=== PATIENT | female | born 1955 | race Caucasian/White ===

== ENCOUNTER 2019-06-04 14:46 | Emergency (ER) | payer OTHER, SELFPAY ==
[2019-06-04 14:52] VITALS: BP 89/52; PULSE 75; RESP 15; O2SAT 96; BMI 35.4
--- NOTE | 2019-06-04 14:52 | ED_ITS ---
Entered by Khio Gilliam LPN, acting as scribe for Denis Lester DO HPI - Syncope General: Chief Complaint: Syncope Stated Complaint: SYNCOPAL EPISODE Time Seen by Provider: 06/04/19 14:52 Source: patient Limitations: no limitations History of Present Illness: HPI narrative: 64 yo female presents after syncopal episode today. She reports she was standing up and suddenly felt lightheaded, like she was going to faint. She states she got hot and sob. Family at bedside reports she did pass out and vomited on herself. She denies any recent illness, diarrhea, urinary symptoms. She denies chest pain. She did have increased sugar this am, about 312, on DM PO meds. She denies any recent med changes or new medication. Associated symptoms: Reports nausea; Deny chest pain Review of Systems General: Reports: 10 or more systems reviewed and unremarkable except in HPI and below Card: Reports: syncope; Denies: chest pain, palpitations or irregular heart rhythm Resp: Reports: shortness of breath GI: Reports: nausea and vomiting; Denies: diarrhea PFSH ED PFSH: Social History Smoking and tobacco status: never smoked Physical Exam Const: COMMON NORMALS: no apparent distress, average body habitus, oriented x3, no limitations, healthy appearing, alert and well nourished HENMT: COMMON NORMALS: normocephalic, head/scalp atraumatic, hearing grossly normal bilaterally, external ears normal, EAC's normal, TM's normal bilaterally, external nose normal, nasal mucous membranes and turbinates normal, moist oral mucous membranes, oropharynx normal, dentition normal and gingiva normal HEAD & SCALP: normocephalic and atraumatic NOSE: external nose normal and nasal mucous membranes and turbinates normal EXTERNAL EAR: Yes external ears normal EXTERNAL AUDITORY CANAL: EAC's normal TYMPANIC MEMBRANE: TM's normal bilaterally Eye: COMMON NORMALS: PERRL, EOMs intact bilaterally, conjunctivae normal, no scleral icterus, no papilledema, normal visual musa by confrontation and fundi normal bilaterally CONJUNCTIVA: Yes conjunctivae normal PUPIL: Yes PERRL DIRECT OPHTHALMOSCOPY: Yes no papilledema and Yes fundi normal bilaterally Neck/C-Spine: COMMON NORMALS: full ROM, no lymphadenopathy, supple, no meningeal signs, no JVD, thyroid normal and no carotid bruits THYROID: thyroid normal Chest: COMMONS NORMALS: inspection of chest normal and palpation of chest normal Resp: COMMON NORMALS: normal respiratory effort, no retractions, no use of accessory muscles, clear to auscultation bilaterally and percussion normal AUSCULTATION: clear to auscultation bilaterally PERCUSSION: percussion normal Cardio: COMMON NORMALS: no JVD, regular rate, regular rhythm, S1 normal heart sound, S2 normal heart sound, no gallops, no clicks, no murmurs, no rub and peripheral pulses 2+ throughout RATE: regular rate RHYTHM: regular rhythm HEART SOUNDS: S1 normal and S2 normal PERIPHERAL PULSES: pulses 2+ throughout GI: COMMON NORMALS: normal to inspection, nondistended, normoactive bowel sounds, soft to palpation, non-tender, no hepatosplenomegaly, no masses and no bruits PALPATION: Yes soft and Yes no hepatosplenomegaly : COMMON NORMALS: Yes no CVA tenderness and Yes external appearance normal BLADDER/KIDNEY EXAM: Yes no CVA tenderness Back/Pelvis: COMMON NORMALS: no CVA tenderness, thoracic and lumbar spine normal to inspection, no thoracic nor lumbar tenderness, thoraco-lumbar ROM normal and straight leg raise negative bilaterally Extremity: COMMON NORMALS: normal to inspection, full ROM, normal capillary refill, no joint enlargement, no clubbing, cyanosis or edema, no calf tenderness and no pedal edema Neuro: COMMON NORMALS: oriented x3 SENSORIUM/ORIENTATION: Yes alert MENINGEAL SIGNS: Yes no meningeal signs Skin: COMMON NORMALS: no rashes or lesions noted, no wounds, skin turgor normal, no jaundice, no petechiae and no mottling GENERAL SKIN EXAM: no rashes or lesions noted and turgor normal Course Vital Signs: Vital signs: Vital Signs Pulse Rate 73 06/04/19 16:28 Respiratory Rate 16 06/04/19 16:28 Blood Pressure 110/57 06/04/19 16:28 Pulse Oximetry 95 06/04/19 16:28 MDM - Syncope Lab Data: Attestation: I reviewed the patient's lab results. Labs: Lab Results 06/04/19 06/04/19 06/04/19 Range/Units 14:27 14:27 14:27 WBC 9.7 (4.0-10.0) 10^3/ uL RBC 5.36 H (4.1-5.3) 10^6/u L Hgb 15.7 H (11.5-15.3) g/dL Hct 46.6 (37.0-47.0) % MCV 86.9 (81-99) fL MCH 29.3 (28.0-34.0) pg MCHC 33.7 (30.0-36.0) g/dL RDW 12.0 L (12.1-15.1) % Plt Count 319 (130-400) 10^3/c mm MPV 11.7 H (7.4-10.4) fL Neut % (Auto) 36.2 % Lymph % (Auto) 52.8 % Coleman % (Auto) 9.2 % Eos % (Auto) 0.8 % Baso % (Auto) 0.7 % Neut # (Auto) 3.5 (1.8-7.7) 10^3/u L Lymph # (Auto) 5.1 H (0.8-4.8) 10^3/u L Coleman # (Auto) 0.9 (0.2-0.9) 10^3/u L Eos # (Auto) 0.1 (0.0-0.8) 10^3/u L Baso # (Auto) 0.1 (0.0-0.1) 10^3/u L Nucleated RBC % (a uto) 0 % Nucleated RBCs # 0.0 /100WBC Sodium 138 (136-145) mmol/L Potassium 3.7 (3.5-5.1) mmol/L Chloride 98 (98-107) mmol/L Carbon Dioxide 22 (22-29) mmol/L Anion Gap 21.7 H (5-19) BUN 28 H (8-23) mg/dL Creatinine 1.3 H (0.5-0.9) mg/dL GFR Calculation 41.1 L (90-130) mL/min Glucose 209 H (65-115) mg/dL Lactate (0.5-2.2) mmol/L Calcium 10.1 (8.5-10.5) mg/dL Total Bilirubin 0.4 (0.15-1.2) mg/dL AST 35 H (0-32) U/L ALT 66 H (0-33) U/L Alkaline Phosphata se 95 (35-105) IU/L Troponin T Baselin e 10 (0-10) ng/mL Troponin T 120 Min [place] (0-10) ng/mL Delta Troponin T (0-10) ABS# Total Protein 8.4 (6.6-8.7) g/dL Albumin 5.1 (3.5-5.2) g/dL Globulin 3.3 (1.3-4.6) g/dL Urine Color (Yellow) Urine Appearance (CLEAR) Urine pH (5-7) Ur Specific Gravit y (1.005-1.030) Urine Protein (Negative) Urine Glucose (UA) (Normal) Urine Ketones (Negative) Urine Blood (Negative) Urine Nitrate (Negative) Urine Bilirubin (NEGATIVE) Urine Urobilinogen (Negative) mg/dL Ur Leukocyte Kya ase (Negative) Urine RBC (0-2) /hpf Urine WBC (0-5) /hpf Ur Squamous Epith Cells (0-5) Urine Bacteria (NONE) 06/04/19 06/04/19 06/04/19 Range/Units 15:26 15:46 16:45 WBC (4.0-10.0) 10^3/ uL RBC (4.1-5.3) 10^6/u L Hgb (11.5-15.3) g/dL Hct (37.0-47.0) % MCV (81-99) fL MCH (28.0-34.0) pg MCHC (30.0-36.0) g/dL RDW (12.1-15.1) % Plt Count (130-400) 10^3/c mm MPV (7.4-10.4) fL Neut % (Auto) % Lymph % (Auto) % Coleman % (Auto) % Eos % (Auto) % Baso % (Auto) % Neut # (Auto) (1.8-7.7) 10^3/u L Lymph # (Auto) (0.8-4.8) 10^3/u L Coleman # (Auto) (0.2-0.9) 10^3/u L Eos # (Auto) (0.0-0.8) 10^3/u L Baso # (Auto) (0.0-0.1) 10^3/u L Nucleated RBC % (a uto) % Nucleated RBCs # /100WBC Sodium (136-145) mmol/L Potassium (3.5-5.1) mmol/L Chloride (98-107) mmol/L Carbon Dioxide (22-29) mmol/L Anion Gap (5-19) BUN (8-23) mg/dL Creatinine (0.5-0.9) mg/dL GFR Calculation (90-130) mL/min Glucose (65-115) mg/dL Lactate 2.0 (0.5-2.2) mmol/L Calcium (8.5-10.5) mg/dL Total Bilirubin (0.15-1.2) mg/dL AST (0-32) U/L ALT (0-33) U/L Alkaline Phosphata se (35-105) IU/L Troponin T Baselin e (0-10) ng/mL Troponin T 120 Min [place] 8.18 (0-10) ng/mL Delta Troponin T -1.82 L (0-10) ABS# Total Protein (6.6-8.7) g/dL Albumin (3.5-5.2) g/dL Globulin (1.3-4.6) g/dL Urine Color Yellow (Yellow) Urine Appearance Cloudy (CLEAR) Urine pH 5 (5-7) Ur Specific Gravit y 1.030 (1.005-1.030) Urine Protein 2+ H (Negative) Urine Glucose (UA) Norm (Normal) Urine Ketones 1+ H (Negative) Urine Blood Neg (Negative) Urine Nitrate Negative (Negative) Urine Bilirubin 1+ H (NEGATIVE) Urine Urobilinogen 1 H (Negative) mg/dL Ur Leukocyte Kya ase Negative (Negative) Urine RBC None (0-2) /hpf Urine WBC 0-4 H (0-5) /hpf Ur Squamous Epith Cells 10-15 H (0-5) Urine Bacteria 3+ H (NONE) Imaging Data^: CXR: Radiologist's impression: IMPRESSION: Negative chest for active pathology. Dictated By:Ryley Powell DO EKG Data^: EKG 1: Prior EKG tracings: not available for review Computer Generated Interpretation: Ordering Provider/Ordering MD: Denis Lester DO Date of Service: 06/04/19 Procedure(s): ECG 12 lead EKG Accession Number(s): [id number] Report Number: [id number] Measurements Intervals [place] Rate: 75 P: 39 [place]: 164 QRS: -21 QRSD: 122 T: 137 QT: 426 QTc: 477 SINUS RHYTHM LEFT BUNDLE BRANCH BLOCK [120+ ms QRS DURATION, 80+ ms Q/S IN V1/V2, 85+ ms R IN I/a I/a I/a I/aVL/V5/V6] INTERPRETATION BASED ON A DEFAULT AGE OF 40 YEARS No previous ECG available for comparison [id number] Dictated By:INTERFACE,USER Discharge Plan Discharge Patient Disposition: Home, Self-Care Clinical Impression: Syncope due to orthostatic hypotension Condition: Stable Prescriptions: No Action celecoxib 200 mg capsule 200 mg PO DAILY RF: 0 metformin 500 mg tablet 1,000 mg PO BID RF: 0 levothyroxine 175 mcg tablet 175 mcg PO QAM RF: 0 citalopram 40 mg tablet 40 mg PO DAILY RF: 0 atorvastatin 10 mg tablet 10 mg PO QPM RF: 0 glyburide 5 mg tablet 5 mg PO BID RF: 0 pantoprazole 40 mg tablet,delayed release (DR/EC) 40 mg PO DAILY RF: 0 Benadryl 25 mg Capsule 25 mg PO BEDTIME RF: 0 Aleve 220 mg Tablet 440 mg PO BEDTIME RF: 0 lisinopril 40 mg tablet 40 mg PO DAILY RF: 0 Flonase Allergy Relief 50 mcg/actuation [place],Suspension 1 spray INTRANASAL DAILY RF: 0 Discharge Orders: Discharge Order (Routine); Ordered 06/04/19 Ordered By: Denis Lester Coding Level of Care Code 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
--- NOTE | 2019-06-04 15:07 | XR_ITS ---
WS: [id number] XR chest 1V portable [id number] REASON FOR EXAM: syncope FINDINGS: Comparisons made to previous exam November 01, 2014. The lung musa are well aerated. No pneumonia, pleural effusion, pulmonary edema, or mass effect. The heart is of normal size. The hilum and apices normal. No osseous abnormalities. XR/XR chest 1V portable [id number] IMPRESSION: Negative chest for active pathology.
--- NOTE | 2019-06-04 15:07 | CTR_ITS ---
PROCEDURE INFORMATION: Exam: CT Head Without Contrast Exam date and time: 06/04/2019 3:20 PM Age: 64 years old Clinical indication: Dizziness; Additional info: Syncope TECHNIQUE: Imaging protocol: Computed tomography of the head without contrast. Total DLP: 745.71 mGy-cm Radiation optimization: All CT scans at this facility use at least one of these dose optimization techniques: automated exposure control; mA and/or kV adjustment per patient size (includes targeted exams where dose is matched to clinical indication); or iterative reconstruction. COMPARISON: No relevant prior studies available. FINDINGS: Brain: No visible evidence of active or acute intracranial pathologic process Ventricles: Unremarkable for age. No ventriculomegaly. Bones/joints: Unremarkable. No acute fracture. Sinuses: Small air-fluid level right sphenoethmoid recess of active sinusitis. Mastoid air cells: Visualized mastoid air cells are well aerated. Soft tissues: Unremarkable. CT/CT head wo con* [id number] IMPRESSION: 1. No visible active or acute intracranial pathologic process. 2. Right sphenoethmoid recess mild sinusitis. Radiation Dose CTDIVOL = (mGy): DLP = 745.71 (mGy-cm)
--- NOTE | 2019-06-04 15:12 | ECG_ITS ---
Measurements Intervals [place] Rate: 75 P: 39 [place]: 164 QRS: -21 QRSD: 122 T: 137 QT: 426 QTc: 477 SINUS RHYTHM LEFT BUNDLE BRANCH BLOCK No previous ECG available for comparison Electronically Signed On 06-04-2019 16:36:16 GAS PLANT OPERATOR by Yuliana Abdalla M.D. [id number] f
[2019-06-04 15:34] LABS: Basophils # 0.1 10^3/uL (0.0-0.1); Basophils % 0.7 %; Eosinophils # 0.1 10^3/uL (0.0-0.8); Eosinophils % 0.8 %; Hematocrit 46.6 % (37.0-47.0); Hemoglobin 15.7 g/dL (11.5-15.3); Lymphocytes # 5.1 10^3/uL (0.8-4.8); Lymphocytes % 52.8 %; Mean Corpuscular HGB Conc 33.7 g/dL (30.0-36.0); Mean Corpuscular Hemoglobin 29.3 pg (28.0-34.0); Mean Corpuscular Volume 86.9 fL (81-99); Mean Platelet Volume 11.7 fL (7.4-10.4); Monocytes # 0.9 10^3/uL (0.2-0.9); Monocytes % 9.2 %; Neutrophils # 3.5 10^3/uL (1.8-7.7); Neutrophils % 36.2 %; Nucleated Red Blood Cells % 0 %; Platelet Count 319 10^3/cmm (130-400); Red Blood Count 5.36 10^6/uL (4.1-5.3); White Blood Count 9.7 10^3/uL (4.0-10.0)
[2019-06-04 15:54] LABS: Alanine Aminotransferase 66 U/L (0-33); Albumin Level 5.1 g/dL (3.5-5.2); Alkaline Phosphatase 95 IU/L (35-105); Anion Gap 21.7 (5-19); Aspartate Amino Transferase 35 U/L (0-32); Blood Urea Nitrogen 28 mg/dL (8-23); Calcium 10.1 mg/dL (8.5-10.5); Carbon Dioxide 22 mmol/L (22-29); Chloride 98 mmol/L (98-107); Globulin 3.3 g/dL (1.3-4.6); Glomerular Filtration Rate 41.1 mL/min (90-130); Glucose 209 mg/dL (65-115); Potassium 3.7 mmol/L (3.5-5.1); Sodium 138 mmol/L (136-145); Total Bilirubin 0.4 mg/dL (0.15-1.2); Total Protein 8.4 g/dL (6.6-8.7)
[2019-06-04 15:56] LABS: Troponin(5th) Baseline 10 ng/mL (0-10)
[2019-06-04 16:20] LABS: Bilirubin Urine 1+ (NEGATIVE); Blood Urine Neg (Negative); Glucose Urine UA Norm (Normal); Ketones Urine 1+ (Negative); Nitrate Urine Negative (Negative); Protein Urine 2+ (Negative); Urine Appearance Cloudy (CLEAR); Urine Color Yellow (Yellow); Urobilinogen Urine 1 mg/dL (Negative); pH Urine 5 (5-7)
[2019-06-04 16:21] LABS: Add Urine Microscopic? YES; Bacteria Urine 3+; Leukocyte Esterase Urine Negative (Negative)
[2019-06-04 16:22] LABS: Add Urine Culture? No; WBC Urine 0-4 /hpf (0-5)
[2019-06-04 16:28] VITALS: BP 110/57; PULSE 73; RESP 16; O2SAT 95
[2019-06-04 17:10] LABS: Troponin 5 2HR 8.18 ng/mL (0-10)
--- NOTE | 2019-06-04 17:12 | ECG_ITS ---
Measurements Intervals [place] Rate: 64 P: 52 ND: 165 QRS: -23 QRSD: 119 T: 143 QT: 449 QTc: 465 SINUS RHYTHM Incomplete LBBB MODERATE T-WAVE ABNORMALITY, CONSIDER LATERAL ISCHEMIA Compared to ECG 06/04/2019 15:08:57 T-wave abnormality now present Possible ischemia now present Left bundle-branch block no longer present Electronically Signed On 06-04-2019 20:00:25 HEAT READER by Yuliana Abdalla M.D. [id number]
[2019-06-04 17:18] LABS: Troponin 5 2HR Delta -1.82 ABS# (0-10)
== END 2019-06-04 17:41 | disposition home or self-care (01) ==
PROVIDERS: Emergency Provider Family Medicine
DX: I95.1 Orthostatic hypotension (principal); E11.9 Type 2 diabetes mellitus without complications; Z79.84 Long term (current) use of oral hypoglycemic drugs
CPT/HCPCS: 36415; 70450; 71045; 80053; 81001; 83605; 84484; 85025; 87040; 93005; 96360; 99282; 99284

== ENCOUNTER → 2021-08-23 14:32 | Outpatient (BNVA) | payer MEDICARE, SELFPAY | PROVIDERS: Referring Provider Family Medicine; Visit Provider Otolaryngology | DX: R04.0 Epistaxis (principal) | CPT/HCPCS: 99203 ==

== ENCOUNTER → 2021-09-06 08:23 | Outpatient (BNVA) | payer MEDICARE, SELFPAY | PROVIDERS: PCP Family Medicine; Visit Provider Otolaryngology | DX: R04.0 Epistaxis (principal) | CPT/HCPCS: 99212 ==

== ENCOUNTER → 2022-07-12 08:19 | Outpatient (BNVA) | payer MEDICARE, SELFPAY | PROVIDERS: PCP Family Medicine; Visit Provider Podiatrist Foot & Ankle Surgery | DX: E11.42 Type 2 diabetes mellitus with diabetic polyneuropathy (principal); L60.3 Nail dystrophy; M21.621 Bunionette of right foot; M21.622 Bunionette of left foot; M20.42 Other hammer toe(s) (acquired), left foot; Z79.84 Long term (current) use of oral hypoglycemic drugs | CPT/HCPCS: 99204 ==

== ENCOUNTER 2022-08-15 10:47 | Outpatient (CLI) | payer MEDICARE, SELFPAY ==
[2022-08-15 11:50] LABS: Alanine Aminotransferase 34 U/L (0-33); Albumin Level 4.3 g/dL (3.5-5.2); Alkaline Phosphatase 101 U/L (35-105); Anion Gap 14.7 (5-19); Aspartate Amino Transferase 24 U/L (0-32); Blood Urea Nitrogen 16 mg/dL (8-23); Calcium 8.7 mg/dL (8.5-10.5); Carbon Dioxide 24 mmol/L (22-29); Chloride 103 mmol/L (98-107); Globulin 2.6 g/dL (1.3-4.6); Glomerular Filtration Rate 83.2 mL/min (90-130); Glucose 160 mg/dL (65-115); Osmolality Calculated 289 mOsm/kg (285-295); Potassium 4.7 mmol/L (3.5-5.1); Sodium 137 mmol/L (136-145); Total Bilirubin 0.3 mg/dL (0.15-1.2); Total Protein 6.9 g/dL (6.6-8.7)
== END 2022-08-15 10:48 | disposition home or self-care (01) ==
LOC: LAB 10:51
PROVIDERS: PCP Family Medicine; Visit Provider Podiatrist Foot & Ankle Surgery
DX: B35.1 Tinea unguium (principal)
CPT/HCPCS: 80053

== ENCOUNTER → 2023-03-29 15:09 | Outpatient (BNVA) | payer MEDICARE, SELFPAY | PROVIDERS: PCP Family Medicine; Visit Provider Nurse Practitioner | DX: R09.81 Nasal congestion (principal); J01.90 Acute sinusitis, unspecified; M62.830 Muscle spasm of back; U07.1 COVID-19 | CPT/HCPCS: 87426 ==

== ENCOUNTER 2023-07-14 20:21 | Emergency (ER) | payer MEDICARE, SELFPAY ==
[2023-07-14 20:25] VITALS: BP 149/78; PULSE 70; RESP 18; TEMP 36.9; O2SAT 95
--- NOTE | 2023-07-14 20:30 | XRR_ITS ---
PROCEDURE INFORMATION: Exam: XR Chest Exam date and time: 07/14/2023 8:50 PM Age: 68 years old Clinical indication: Cough and shortness of breath; Patient HX: Cough with SOB TECHNIQUE: Imaging protocol: Radiologic exam of the chest. Views: 1 view. COMPARISON: CR XR chest 1V portable [id number] 06/04/2019 3:43 PM FINDINGS: Lungs: Clear, symmetrically inflated lungs. Pleural spaces: No pleural effusion. No pneumothorax. Heart/Mediastinum: Cardiac silhouette is normal in size for technique. Bones/joints: Age appropriate. XR/XR chest 1V [id number] IMPRESSION: No acute cardiopulmonary abnormality.
--- NOTE | 2023-07-14 21:01 | W.ED.URI ---
HPI - URI/Sore Throat General: Chief Complaint: Upper Respiratory Infection Stated Complaint: Sinus, SOB Time Seen by Provider: 07/14/23 20:47 History of Present Illness: 68-year-old female with a history of hyperlipidemia hypertension and diabetes who presents to the emergency room with a cough for about the last 4 months. She says she just feels miserable. Nothing really changed today. She does not have a primary care physician at this time hers retired and then she did not like the when she went to next. No fevers. No abdominal pain. No nausea or vomiting. Review of Systems Narrative: Constitutional symptoms: Negative except as documented in HPI. Skin symptoms: Negative except as documented in HPI. Eye symptoms: Negative except as documented in HPI. ENMT symptoms: Negative except as documented in HPI. Respiratory symptoms: Negative except as documented in HPI. Cardiovascular symptoms: Negative except as documented in HPI. Gastrointestinal symptoms: Negative except as documented in HPI. Genitourinary symptoms: Negative except as documented in HPI. Musculoskeletal symptoms: Negative except as documented in HPI. Neurologic symptoms: Negative except as documented in HPI. Psychiatric symptoms: Negative except as documented in HPI. Endocrine symptoms: Negative except as documented in HPI. [facility] ED PFSH: Surgical History History of tubal ligation History of hysterectomy Social History Smoking and tobacco/nicotine status: never used tobacco/nicotine Physical Exam Narrative: EXAM NARRATIVE: General: Alert, no acute distress. Skin: Warm, dry. Head: Normocephalic, atraumatic. Neck: Supple, trachea midline. Eye: Extraocular movements are intact. Ears, nose, mouth and throat: mucosa moist. Cardiovascular: Regular, Normal peripheral perfusion. Respiratory: Lungs are clear to auscultation, respirations are non-labored, breath sounds are equal, Symmetrical chest wall expansion. Gastrointestinal: Soft, Nontender, Non distended, Normal bowel sounds. Musculoskeletal: Normal ROM, no deformity. Neurological: Alert and oriented, No focal neurological deficit observed. Psychiatric: Cooperative, appropriate mood & affect. Course Vital Signs: Vital signs: Vital Signs Temperature 98.5 F 07/14/23 20:25 Pulse Rate 64 07/14/23 21:27 Respiratory Rate 18 07/14/23 21:18 Blood Pressure 149/78 07/14/23 20:25 Pulse Oximetry 97 07/14/23 21:18 Oxygen Delivery Me thod Room Air 07/14/23 21:18 MDM - URI/Sore Throat Medical Decision Making Medical decision making: Differential diagnosis including but not limited to and based on the above HPI, review of systems and physical exam: Concern for pneumonia or cancer so chest x-ray was ordered. Flu and COVID were ordered. Basic lab work were ordered. Orders placed to evaluate differential diagnosis based on the above differential, HPI and physical exam Chest x-ray: No acute process. No infiltrate. No pneumothorax. No cardiomegaly. This was reviewed and interpreted by myself the ER physician. Reexamination: Patient appears improved. No increased work of breathing. No altered mental status. She no longer has wheeze. Lab Data 07/14/23 21:01 07/14/23 21:01 Radiology Impressions Chest X-Ray 07/14/23 20:30 IMPRESSION: No acute cardiopulmonary abnormality. Laboratory Results WBC 8.78 10^3/uL (3.29-11.43) 07/14/23 21:01 RBC 4.10 10^6/uL (3.85-5.65) 07/14/23 21: Hgb 12.20 g/dL (11.27-16.99) 07/14/23 21:01 Hct 36.5 % (36-47) 07/14/23 21: MCV 89.0 fl (85-98) 07/14/23 21: MCH 29.8 pg (27-33) 07/14/23 21: MCHC 33.4 g/dL (30-55) 07/14/23 21:01 RDW 12.3 % (12.1-15.1) 07/14/23 21: Plt Count 265 10^3/cmm (157-399) 07/14/23 21: MPV 11.3 fL (7.4-10.4) H 07/14/23 21:01 Neut % (Auto) 42.6 % 07/14/23 21: Lymph % (Auto) 47.3 % 07/14/23 21: [place] % (Auto) 6.4 % 07/14/23 21:01 Eos % (Auto) 2.1 % 07/14/23 21:01 Baso % (Auto) 1.0 % 07/14/23 21:01 Neut # (Auto) 3.75 10^3/uL (1.8-7.7) 07/14/23 21: Lymph # (Auto) 4.2 10^3/uL (0.8-4.8) 07/14/23 21:01 [place] # (Auto) 0.6 10^3/uL (0.2-0.9) 07/14/23 21:01 Eos # (Auto) 0.2 10^3/uL (0.0-0.8) 07/14/23 21:01 Baso # (Auto) 0.1 10^3/uL (0.0-0.1) 07/14/23 21:01 Nucleated RBC % (auto) 0 % 07/14/23 21:01 Nucleated RBCs # 0.0 /100WBC 07/14/23 21:01 Sodium 136 mmol/L (136-145) 07/14/23 21:01 Potassium 4.6 mmol/L (3.5-5.1) 07/14/23 21:01 Chloride 102 mmol/L (98-107) 07/14/23 21:01 Carbon Dioxide 24 mmol/L (22-29) 07/14/23 21:01 Anion Gap 14.6 (5-19) 07/14/23 21:01 BUN 19 mg/dL (8-23) 07/14/23 21:01 Creatinine 1.0 mg/dL (0.5-0.9) H 07/14/23 21:01 GFR Calculation 55.0 mL/min (90-130) L 07/14/23 21:01 Glucose 285 mg/dL (65-115) H 07/14/23 21:01 Calculated Osmolality 295 mOsm/kg (285-295) 07/14/23 21:01 Calcium 8.7 mg/dL (8.5-10.5) 07/14/23 21:01 Influenza Type A Ag negative (Negative) 07/14/23 20:58 Influenza Type B Ag negative (Negative) 07/14/23 20:58 SARS-CoV-2 Ag (Rapid) Negative (Negative) 07/14/23 20:58 All radiology interpretation(s) finalized by discharge Otehr Data Assessment and plan: -Decadron and a breathing treatment in the emergency room -Patient says the breathing treatment helped her breathing quite a bit. - Discharged home - Discussed plan with patient. Answered any questions. - Evaluation and treatment of this problem were appropriate in the emergency setting. Discharge Plan Discharge Patient Disposition: Home Clinical Impression: Cough, Wheeze Condition: Stable Prescriptions: New dexamethasone 6 mg tablet 6 mg PO DAILY 5 Days Qty: 5 0RF albuterol sulfate 90 mcg/actuation HFA aerosol inhaler 2 inh inhalation Q4H PRN (Reason: shortness of breath or wheezing) Qty: 6.7 0RF Rx Instructions: Please provide patient with a spacer No Action Januvia 25 mg tablet 25 mg PO DAILY isosorbide mononitrate 60 mg tablet extended release 24 hr 60 mg PO DAILY furosemide 20 mg tablet 20 mg PO DAILY aspirin 81 mg tablet,chewable 81 mg PO DAILY nitroglycerin 0.4 mg tablet, sublingual 0.4 mg sublingual Q5M PRN Rx Instructions: do not exceed 3 doses per episode Trulicity 0.75 mg/0.5 mL pen injector SUBCUT methocarbamol 750 mg tablet 750 mg PO Q8H PRN (Reason: back pain) Qty: 10 0RF celecoxib 200 mg capsule 200 mg PO DAILY metformin 500 mg tablet 1,000 mg PO BID levothyroxine 175 mcg tablet 175 mcg PO QAM citalopram 40 mg tablet 40 mg PO DAILY Rx Instructions: pt states she has been out of this medication for a few weeks atorvastatin 10 mg tablet 10 mg PO QPM glyburide 5 mg tablet 5 mg PO BID pantoprazole 40 mg tablet,delayed release (DR/EC) 40 mg PO DAILY Benadryl 25 mg Capsule 25 mg PO BEDTIME Aleve 220 mg Tablet 440 mg PO BEDTIME lisinopril 40 mg tablet 40 mg PO DAILY Flonase Allergy Relief 50 mcg/actuation [place],Suspension 1 spray INTRANASAL DAILY Discharge Orders: Discharge ED (Routine); Ordered 07/14/23 Ordered By: Lesly Crowell Discharge Diet: Usual diet Discharge Activity: Resume usual activity Patient Instructions: How to Use a Metered-Dose Inhaler and a Spacer (ED), Opioid Safety, Pain Management Activity Restrictions/Additional Instructions: You have been screened and evaluated and felt safe for discharge. Health conditions do change or evolve sometimes and as such it is important that you follow up with your Primary Doctor to be re checked, 3-5 days is a general good time frame for follow up. You are always welcome to return to the ED for re assessment if your symptoms are worsening or you have new concerns Coding Level of Care Code ED Robotic Machine Operator for [place]
[2023-07-14 21:10] LABS: Basophils # 0.1 10^3/uL (0.0-0.1); Eosinophils # 0.2 10^3/uL (0.0-0.8); Eosinophils % 2.1 %; Hematocrit 36.5 % (36-47); Lymphocytes # 4.2 10^3/uL (0.8-4.8); Lymphocytes % 47.3 %; Mean Corpuscular HGB Conc 33.4 g/dL (30-55); Mean Corpuscular Hemoglobin 29.8 pg (27-33); Mean Platelet Volume 11.3 fL (7.4-10.4); Monocytes # 0.6 10^3/uL (0.2-0.9); Monocytes % 6.4 %; Neutrophils # 3.75 10^3/uL (1.8-7.7); Neutrophils % 42.6 %; Nucleated Red Blood Cells % 0 %; Platelet Count 265 10^3/cmm (157-399); Red Cell Distribution Width 12.3 % (12.1-15.1); White Blood Count 8.78 10^3/uL (3.29-11.43)
[2023-07-14] MEDS: dexamethasone 10 mg/mL INJ IM (21:15)
[2023-07-14 21:18] VITALS: PULSE 61; RESP 18; O2SAT 97
[2023-07-14] MEDS: ipratropium-albuterol 3 mL Neb INHALATION (21:18)
[2023-07-14 21:23] LABS: Blood Urea Nitrogen 19 mg/dL (8-23); Calcium 8.7 mg/dL (8.5-10.5); Chloride 102 mmol/L (98-107); Osmolality Calculated 295 mOsm/kg (285-295); Potassium 4.6 mmol/L (3.5-5.1); Sodium 136 mmol/L (136-145)
[2023-07-14 21:27] VITALS: PULSE 64
[2023-07-14 21:36] LABS: Anion Gap 14.6 (5-19); Carbon Dioxide 24 mmol/L (22-29)
[2023-07-14 21:37] LABS: Influenza A by IFA negative (Negative); Influenza B by IFA negative (Negative)
[2023-07-14 21:39] LABS: Creatinine Clr Calc Pharmacy 56.7686; Glucose 285 mg/dL (65-115)
[2023-07-14 21:56] LABS: SARS Covid-2 Antigen Negative (Negative)
[2023-07-14 22:47] VITALS: BP 147/72; PULSE 66; RESP 16; O2SAT 96
== END 2023-07-14 22:47 | disposition home or self-care (01) ==
PROVIDERS: Emergency Provider Emergency Medicine
DX: R05.9 Cough, unspecified (principal); R06.2 Wheezing; Z79.82 Long term (current) use of aspirin; Z79.85 Long-term (current) use of injectable non-insulin antidiabetic drugs; Z79.84 Long term (current) use of oral hypoglycemic drugs; Z11.52 Encounter for screening for COVID-19
CPT/HCPCS: 36415; 71045; 80048; 85025; 87426; 87804; 94640; 96372; 99284; J1100

== ENCOUNTER → 2023-12-19 11:10 | Outpatient (BNVA) | payer MEDICARE, SELFPAY | PROVIDERS: Visit Provider Internal Medicine | DX: E11.9 Type 2 diabetes mellitus without complications (principal) | CPT/HCPCS: 36415; 80053; 80061; 82044; 83036 ==

== ENCOUNTER 2024-01-18 13:44 | Emergency (ER) | payer MEDICARE, SELFPAY ==
--- NOTE | 2024-01-18 13:45 | XRR_ITS ---
PROCEDURE INFORMATION: Exam: XR Chest Exam date and time: 01/18/2024 4:10 PM Age: 68 years old Clinical indication: Pain; Angina pectoris; Additional info: Cp TECHNIQUE: Imaging protocol: Radiologic exam of the chest. Views: 1 view. COMPARISON: CR XR chest 1V [id number] 07/14/2023 8:50 PM FINDINGS: Lungs: Unremarkable. No consolidation. Pleural spaces: Unremarkable. No pleural effusion. No pneumothorax. Heart/Mediastinum: Unremarkable. No cardiomegaly. Bones/joints: Unremarkable. XR/XR chest 1V portable [id number] IMPRESSION: No acute findings.
--- NOTE | 2024-01-18 13:45 | ECG_ITS ---
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: : 1955 Requested By: Nicolle Harris Order Number: [id number] Reading MD: KENROY DHILLON Measurements Intervals [place] Rate: 59 P: 33 [place]: 177 QRS: -28 QRSD: 128 T: 127 QT: 432 QTc: 429 Interpretive Statements SINUS BRADYCARDIA LEFT BUNDLE BRANCH BLOCK [120+ ms QRS DURATION, 80+ ms Q/S IN V1/V2, 85+ ms R IN I/aVL/V5/V6] INTERPRETATION BASED ON A DEFAULT AGE OF 40 YEARS Compared to ECG 06/04/2019 17:39:37 Sinus rhythm no longer present T-wave abnormality no longer present Possible ischemia no longer present Electronically Signed On 01-20-2024 18:12:20 CDT by KENROY DHILLON [id number]
[2024-01-18 13:51] VITALS: BP 99/64; PULSE 64; RESP 16; TEMP 36.3; O2SAT 98; BMI 31.7
[2024-01-18 15:20] LABS: Basophils # 0.1 10^3/uL (0.0-0.1); Basophils % 0.8 %; Eosinophils # 0.1 10^3/uL (0.0-0.8); Eosinophils % 1.5 %; Hematocrit 42.8 % (36-47); Lymphocytes # 2.9 10^3/uL (0.8-4.8); Lymphocytes % 34.3 %; Mean Corpuscular Hemoglobin 28.9 pg (27-33); Mean Corpuscular Volume 90.3 fl (85-98); Mean Platelet Volume 10.8 fL (7.4-10.4); Monocytes # 0.6 10^3/uL (0.2-0.9); Monocytes % 7.5 %; Neutrophils # 4.77 10^3/uL (1.8-7.7); Neutrophils % 55.6 %; Nucleated Red Blood Cells % 0 %; Platelet Count 305 10^3/cmm (157-399); Red Blood Count 4.74 10^6/uL (3.85-5.65); Red Cell Distribution Width 12.3 % (12.1-15.1); White Blood Count 8.58 10^3/uL (3.29-11.43)
[2024-01-18 15:39] LABS: Alanine Aminotransferase 19 U/L (0-33); Albumin Level 4.4 g/dL (3.5-5.2); Alkaline Phosphatase 83 U/L (35-105); Anion Gap 15.1 (5-19); Aspartate Amino Transferase 19 U/L (0-32); Blood Urea Nitrogen 32 mg/dL (8-23); Calcium 9.1 mg/dL (8.5-10.5); Carbon Dioxide 23 mmol/L (22-29); Chloride 100 mmol/L (98-107); Creatinine Clr Calc Pharmacy 50.5858; Glomerular Filtration Rate 49.2 mL/min (90-130); Glucose 178 mg/dL (65-115); Lipase 53 U/L (13-60); Osmolality Calculated 287 mOsm/kg (285-295); Potassium 5.1 mmol/L (3.5-5.1); Sodium 133 mmol/L (136-145); Total Bilirubin 0.5 mg/dL (0.15-1.2); Total Protein 6.4 g/dL (6.6-8.7)
[2024-01-18 16:16] LABS: INR 0.98 (0.8-1.2)
[2024-01-18 16:27] LABS: Troponin(5th) Baseline 11 ng/L (0-10)
--- NOTE | 2024-01-18 16:29 | ECG_ITS ---
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
--- NOTE | 2024-01-18 16:41 | W.ED.BACK ---
HPI - Back Pain/Injury General: Chief Complaint: Back Pain/Injury Stated Complaint: chest pain Time Seen by Provider: 01/18/24 16:37 History of Present Illness: 68-year-old female comes in today with some lightheadedness and dizziness. Patient reports that she was hanging some hollowing decorations and had her arms above her head for prolonged period of time. Patient reports that she started having some increased weakness and felt like she was going to pass out. Patient sat down for a while and felt proved but this has been since patient has been brought to the ER. Patient appears to have a decreased blood pressure at 99/64 on triage assessment. Related Data Home Medications Medication Instructions Recorded Confirmed citalopram 40 mg tablet 40 mg PO DAILY 06/04/19 12/19/23 fluticasone propionate 50 1 spray intranasal DAILY 06/04/19 12/19/23 mcg/actuation nasal spray,suspension (Flonase Allergy Relief) levothyroxine 175 mcg tablet 175 mcg PO QAM 06/04/19 12/19/23 lisinopril 40 mg tablet 40 mg PO DAILY 06/04/19 12/19/23 pantoprazole 40 mg tablet,delayed 40 mg PO DAILY 06/04/19 12/19/23 release aspirin 81 mg chewable tablet 81 mg PO DAILY 08/23/21 12/19/23 furosemide 20 mg tablet 20 mg PO DAILY 08/23/21 12/19/23 isosorbide mononitrate 60 mg 60 mg PO DAILY 08/23/21 12/19/23 tablet,extended release 24 hr Previous Rx's Medication Instructions Recorded methocarbamol 750 mg tablet 750 mg PO Q8H PRN back pain #10 03/29/23 tabs Allergies Allergy/AdvReac Type Severity Reaction Status Date / Time No Known Allergies Allergy Verified 01/18/24 13:51 Review of Systems General: Reports: 10 or more systems reviewed and unremarkable except in HPI and below PFSH ED PFSH: Surgical History History of tubal ligation History of hysterectomy Social History Smoking and tobacco/nicotine status: never used tobacco/nicotine Physical Exam Const: COMMON NORMALS: alert HENMT: COMMON NORMALS: normocephalic HEAD & SCALP: normocephalic THROAT: posterior oropharynx normal Neck/C-Spine: COMMON NORMALS: full ROM CERVICAL SPINE: No Cervical spine tenderness Chest: COMMONS NORMALS: normal palpation of entire chest wall Resp: COMMON NORMALS: normal respiratory effort Cardio: COMMON NORMALS: regular rate RATE: regular rate GI: COMMON NORMALS: Soft to palpation and non-tender PALPATION: Yes Soft to palpation Back/Pelvis: COMMON NORMALS: thoracic and lumbar spine normal to inspection Extremity: COMMON NORMALS: normal to inspection and full ROM Neuro: SENSORIUM/ORIENTATION: Yes alert Skin: COMMON NORMALS: turgor normal GENERAL SKIN EXAM: turgor normal Course Vital Signs: Vital signs: Vital Signs Temperature 97.4 F L 01/18/24 13:51 Pulse Rate 55 L 01/18/24 18:46 Respiratory Rate 14 01/18/24 18:46 Blood Pressure 126/79 01/18/24 18:46 Pulse Oximetry 100 01/18/24 18:46 Oxygen Delivery Me thod Room Air 01/18/24 18:30 MDM - Back Pain/Injury Medical Decision Making 68-year-old female comes in today with some complaints of lightheadedness and dizziness. Patient reports some back pain for the last 2 to 3 weeks that is not exactly increased with movement. Patient was told that she had a rib out. Today patient was hanging up hollowing decorations with her arms above her head when she became lightheaded and felt like she was going to pass out. Since arriving to the ER patient is much improved. Patient does take lisinopril and furosemide routinely for blood pressure. Differential diagnosis includes orthostatic hypotension, adverse drug effect, ACS. Patient was laying back when I was assessing her and her blood pressure was noted to be 110, patient was sat up in bed for further evaluation and blood pressure was noted to have dropped to 89 systolic. The patient most likely had some orthostatic hypotension patient was given 1 L of IV fluid and then orthostatic pressures were repeated. CBC CMP was unremarkable. Patient's initial troponin is 11. Second troponin was down with a delta declining. Patient was given a liter of IV fluids and orthostatic pressures repeated were improved. Patient was discharged home with recommendations for following up with primary care for adjustment of medications. Labs 01/18/24 14:55 01/18/24 14:55 Laboratory Results WBC 8.58 10^3/uL (3.29-11.43) 01/18/24 14:55 RBC 4.74 10^6/uL (3.85-5.65) 01/18/24 14:55 Hgb 13.70 g/dL (11.27-16.99) 01/18/24 14:55 Hct 42.8 % (36-47) 01/18/24 14:55 MCV 90.3 fl (85-98) 01/18/24 14:55 MCH 28.9 pg (27-33) 01/18/24 14:55 MCHC 32.0 g/dL (30-55) 01/18/24 14:55 RDW 12.3 % (12.1-15.1) 01/18/24 14:55 Plt Count 305 10^3/cmm (157-399) 01/18/24 14:55 MPV 10.8 fL (7.4-10.4) H 01/18/24 14:55 Neut % (Auto) 55.6 % 01/18/24 14:55 Lymph % (Auto) 34.3 % 01/18/24 14:55 [place] % (Auto) 7.5 % 01/18/24 14:55 Eos % (Auto) 1.5 % 01/18/24 14:55 Baso % (Auto) 0.8 % 01/18/24 14:55 Neut # (Auto) 4.77 10^3/uL (1.8-7.7) 01/18/24 14:55 Lymph # (Auto) 2.9 10^3/uL (0.8-4.8) 01/18/24 14:55 [place] # (Auto) 0.6 10^3/uL (0.2-0.9) 01/18/24 14:55 Eos # (Auto) 0.1 10^3/uL (0.0-0.8) 01/18/24 14:55 Baso # (Auto) 0.1 10^3/uL (0.0-0.1) 01/18/24 14:55 Nucleated RBC % (auto) 0 % 01/18/24 14:55 Nucleated RBCs # 0.0 /100WBC 01/18/24 14:55 PT 13.30 SECONDS (12.1-14.9) 01/18/24 14:55 INR 0.98 (0.8-1.2) 01/18/24 14:55 Sodium 133 mmol/L (136-145) L 01/18/24 14:55 Potassium 5.1 mmol/L (3.5-5.1) 01/18/24 14:55 Chloride 100 mmol/L (98-107) 01/18/24 14:55 Carbon Dioxide 23 mmol/L (22-29) 01/18/24 14:55 Anion Gap 15.1 (5-19) 01/18/24 14:55 BUN 32 mg/dL (8-23) H 01/18/24 14:55 Creatinine 1.1 mg/dL (0.5-0.9) H 01/18/24 14:55 GFR Calculation 49.2 mL/min (90-130) L 01/18/24 14:55 Glucose 178 mg/dL (65-115) H 01/18/24 14:55 Calculated Osmolality 287 mOsm/kg (285-295) 01/18/24 14:55 Calcium 9.1 mg/dL (8.5-10.5) 01/18/24 14:55 Total Bilirubin 0.5 mg/dL (0.15-1.2) 01/18/24 14:55 AST 19 U/L (0-32) 01/18/24 14:55 ALT 19 U/L (0-33) 01/18/24 14:55 Alkaline Phosphatase 83 U/L (35-105) 01/18/24 14:55 Troponin T Baseline 11 ng/L (0-10) H 01/18/24 14:55 Troponin T 120 Minute 8.27 ng/L (0-10) 01/18/24 17:10 Delta Troponin T -2.73 ABS# (0-10) L 01/18/24 17:10 Total Protein 6.4 g/dL (6.6-8.7) L 01/18/24 14:55 Albumin 4.4 g/dL (3.5-5.2) 01/18/24 14:55 Globulin 2.0 g/dL (1.3-4.6) 01/18/24 14:55 Lipase 53 U/L (13-60) 01/18/24 14:55 All radiology interpretation(s) finalized by discharge Discharge Plan Discharge Patient Disposition: Home Clinical Impression: Orthostatic hypotension Adverse drug effect Qualifiers: Encounter type: initial encounter Qualified Code(s): T50.905A - Adverse effect of unspecified drugs, medicaments and biological substances, initial encounter Condition: Stable Prescriptions: No Action isosorbide mononitrate 60 mg tablet extended release 24 hr 60 mg PO DAILY furosemide 20 mg tablet 20 mg PO DAILY aspirin 81 mg tablet,chewable 81 mg PO DAILY methocarbamol 750 mg tablet 750 mg PO Q8H PRN (Reason: back pain) Qty: 10 0RF levothyroxine 175 mcg tablet 175 mcg PO QAM citalopram 40 mg tablet 40 mg PO DAILY Rx Instructions: pt states she has been out of this medication for a few weeks pantoprazole 40 mg tablet,delayed release (DR/EC) 40 mg PO DAILY lisinopril 40 mg tablet 40 mg PO DAILY Flonase Allergy Relief 50 mcg/actuation [place],Suspension 1 spray INTRANASAL DAILY Discharge Orders: Discharge ED (Routine); Ordered 01/18/24 Ordered By: Osorio Daily Discharge Diet: Usual diet Discharge Activity: Increase activity as tolerated Patient Instructions: Hypotension (ED) Activity Restrictions/Additional Instructions: Most likely your hypotensive episode was due to both the medications that you take for both water buildup and blood pressure. Follow-up with your primary care for recommendations. Coding Level of Care Code ED [employer] for [place]
[2024-01-18] MEDS: sodium chloride 0.9% 1,000 ML 999 ML IV (16:57)
[2024-01-18 17:10] VITALS: BP 111/61; PULSE 53; RESP 14; O2SAT 94
[2024-01-18 17:36] LABS: Troponin 5 2HR 8.27 ng/L (0-10)
[2024-01-18 17:38] LABS: Troponin 5 2HR Delta -2.73 ABS# (0-10)
[2024-01-18 18:24] VITALS: BP 116/60; BP 137/66; BP 142/75; PULSE 52; PULSE 58; PULSE 66
[2024-01-18 18:30] VITALS: BP 137/66; PULSE 66; RESP 14; O2SAT 98
[2024-01-18 18:46] VITALS: BP 126/79; PULSE 55; RESP 14; O2SAT 100
== END 2024-01-18 18:49 | disposition home or self-care (01) ==
PROVIDERS: Emergency Medicine; Emergency Provider Nurse Practitioner Family
DX: I95.2 Hypotension due to drugs (principal); T46.4X5A Adverse effect of angiotensin-converting-enzyme inhibitors, initial encounter; T50.1X5A Adverse effect of loop [high-ceiling] diuretics, initial encounter; Z79.82 Long term (current) use of aspirin
CPT/HCPCS: 36415; 71045; 80053; 83690; 84484; 85025; 85610; 93005; 99285; J7030

== ENCOUNTER → 2024-03-20 11:30 | Outpatient (BNVA) | payer MEDICARE, SELFPAY | PROVIDERS: PCP Family Medicine; Visit Provider Internal Medicine | DX: E11.9 Type 2 diabetes mellitus without complications (principal); E78.00 Pure hypercholesterolemia, unspecified; Z79.899 Other long term (current) drug therapy | CPT/HCPCS: 36415; 80053; 80061; 82044; 83036; 84439; 84443 ==

== ENCOUNTER 2024-08-23 14:10 | Outpatient (CLI) | payer MEDICARE, SELFPAY ==
--- NOTE | 2024-08-23 14:30 | CT_ITS ---
WS: [id number] CT PARANASAL SINUSES HISTORY: had sinus surgery 04/27; chronic drainage/snorting TECHNIQUE: Contiguous 2.5 mm axial images obtained through the sinuses. Images are reconstructed in sagittal and coronal planes. All CT scans at [facility] use at least one of these dose optimization techniques: automated exposure control; mA and/or kV adjustment per patient size (includes targeted exams where dose is matched to clinical indication); or iterative reconstruction. DLP: 431.18 mGy.cm COMPARISON: None available. Frontal sinuses: Mild mucoperiosteal thickening in the RIGHT frontal sinus extending into the frontoethmoid recess. Sphenoid sinus: Mild sphenoid sinus mucoperiosteal thickening. Frothy secretions in the LEFT sphenoid sinus. Ethmoid sinuses: Bilateral ethmoid air cell secretions identified, RIGHT greater than LEFT. Prior FESS surgery. Maxillary sinus: Minimal mucoperiosteal thickening. No air-fluid levels. Ostiomeatal unit: Surgically enlarged RIGHT ostiomeatal unit. Mucoperiosteal thickening along the LEFT ostiomeatal unit but it does appear to be patent. No significant deviation of the nasal septum. Orbits and globes are negative. Mastoid air cells are clear. CT/CT sinus wo con* [id number] IMPRESSION: 1. Surgically enlarged RIGHT ostiomeatal unit. 2. There is mild diffuse mucoperiosteal thickening throughout the sinuses, mos t significant involving the RIGHT ethmoid air cells. No air-fluid levels.
== END 2024-08-23 14:11 | disposition home or self-care (01) ==
PROVIDERS: PCP Family Medicine; Visit Provider Family Medicine
DX: J32.0 Chronic maxillary sinusitis (principal); Z98.890 Other specified postprocedural states; J34.89 Other specified disorders of nose and nasal sinuses
CPT/HCPCS: 70486

== ENCOUNTER → 2024-11-25 08:23 | Outpatient (BNVA) | payer MEDICARE, SELFPAY | PROVIDERS: PCP Family Medicine; Visit Provider Internal Medicine | DX: E11.9 Type 2 diabetes mellitus without complications (principal); E78.00 Pure hypercholesterolemia, unspecified | CPT/HCPCS: 99214 ==

== ENCOUNTER → 2025-02-07 14:56 | Outpatient (BNVA) | payer MEDICARE, SELFPAY | PROVIDERS: PCP Family Medicine; Visit Provider Family Medicine | DX: I10 Essential (primary) hypertension (principal); E11.9 Type 2 diabetes mellitus without complications; I25.10 Atherosclerotic heart disease of native coronary artery without angina pectoris; E78.00 Pure hypercholesterolemia, unspecified; E03.9 Hypothyroidism, unspecified; K76.0 Fatty (change of) liver, not elsewhere classified; Z11.59 Encounter for screening for other viral diseases | CPT/HCPCS: 80053; 80061; 82043; 82607; 83036; 84439; 84443; 85025; 86803 ==